=== PATIENT | male | born 1975 | race Caucasian/White ===

== ENCOUNTER 2017-02-17 21:59 | Emergency (ER) | payer SELFPAY ==
[~2017-02-17] VITALS: Ht 162.6 cm; Wt 68.0 kg
[2017-02-17 22:01] VITALS: Ht 162.6 cm; Wt 68.0 kg
--- NOTE | 2017-02-17 22:50 | ERD ---
ER Documentation Chief Complaint Date/Time DATE: 02/17/17 TIME: 22:45 Chief Complaint left knee pain x 1 month, denies in jury HPI 41-year-old male presents to emergency department for complaints of left knee pain for one month now, patient states that whenever he walks long distances, it starts to swell up. Patient's complete of pain throbbing eating less than scale, and movement. Patient denies any trauma on affected area. Patient denies any numbness or tingling. Patient denies any fever or chills. ROS All systems reviewed and are negative except as per history of present illness. Medications Home Meds Active Scripts Tramadol HCl (Tramadol HCl) 50 Mg Tablet, 50 MG PO Q6 Y for SEVERE PAIN LEVEL 7- 10, #20 TAB Prov:MARCIN JANE [employer]CH[employer] 02/18/17 Ibuprofen* (Motrin*) 600 Mg Tab, 600 MG PO Q6H Y for PAIN AND OR ELEVATED TEMP, #30 TAB Prov:MARCIN JANE [employer]CH[employer] 02/18/17 Reported Medications [none] Unknown Strength No Conflict Check 02/17/17 Allergies Allergies: Coded Allergies: No Known Allergy (Unverified , 02/17/17) PMhx/Soc Medical and Surgical Hx: pt denies Medical Hx, pt denies Surgical Hx History of Surgery: No (DENIES MEDICAL AND SURGICAL HX.) Hx Alcohol Use: No Hx Substance Use: No Hx Tobacco Use: No Smoking Status: Never smoker FmHx Family History: No coronary disease, No diabetes, No other Physical Exam Vitals Vital Signs Date Time Temp Pulse Resp B/P Pulse Ox O2 Delivery O2 Flow Rate FiO2 02/17/17 22:01 98.3 85 20 134/76 98 Physical Exam GENERAL: The patient is well developed and appropriate for usual state of health, in no apparent distress. CHEST: Clear to auscultation bilaterally. There are no rales, wheezes or rhonchi. HEART: Regular rate and rhythm. No murmurs, clicks, rubs or gallops. No S3 or S4. ABDOMEN: Soft, nontender and nondistended. Good bowel sounds. No rebound or guarding. No gross peritonitis. No gross organomegaly or masses. No Wood sign or McBurney point tenderness. BACK: No midline or flank tenderness. EXTREMITIES: Able to do full range of motion of the left knee without any restriction, mild tenderness on palpation on the patellar aspect of the left knee, no informant he noted, no ecchymosis noted, no swelling noted. Equal pulses bilaterally. Full range of motion of other joints of the body. Grossly neurovascularly intact. NEURO: Alert and oriented. Cranial nerves 2-12 intact. Motor strength in all 4 extremities with 5/5 strength. Sensation grossly intact. Normal speech and gait. SKIN: There is no apparent rash or petechia. The skin is warm and dry. HEMATOLOGIC AND LYMPHATIC: There is no evidence of excessive bruising or lymphedema. No gross cervical, axillary, or inguinal lymphadenopathy. Results 24 hrs PROCEDURE: LEFT KNEE - 3 VIEWS CLINICAL INDICATION: 41-year-old male with left knee pain. TECHNIQUE: AP, lateral and oblique view of the left knee were obtained. The images reviewed on a PACS workstation. COMPARISON: None. FINDINGS: The bones appear intact, with no evidence of fracture, erosion, demineralization , or dislocation. The alignment of the femorotibial and patellofemoral joints appears normal. No joint space narrowing is seen. IMPRESSION: Unremarkable examination of the left knee. .Bonifacio Rodrigues MD, MD Date Time Electronically viewed and signed by .Bonifacio Rodrigues MD, MD on 02/18/2017 01:00 .M/ CC: MARCIN JANE [employer] After receiving patients xray report, a knee acewrap was applied on the patients left knee_. After application of the splint, patient has intact sensation and circulation on distal area of the affected joint. Patient does not complain of numbness or tingling after application of the splint. Patient tolerated procedure well. Procedures/MDM Medical Decision Making: Patient's pain is most likely consistent with a contusion or a sprain. There is no suspicion for neurovascular compromise. Patient has intact sensation and circulation of the affected extremity. There is low suspicion for septic arthritis. Patient does not have any fever. Radiology exams of the affected area does not show any fracture or dislocation. Disposition: Home. Patient is given prescription for ibuprofen for pain. Patient was advised to elevate the affected area and apply ice on affected area. Patient was advised that if symptoms are worse, numbness, tingling, high fever, unable to move joint, worsening symptoms, to return to emergency department immediately. Otherwise, patient is advised to follow up with the primary care doctor in 5-7 days for reevaluation of symptoms. Departure Diagnosis: Primary Impression: Knee pain Laterality: left Chronicity: acute Qualified Code: M25.562 - Acute pain of left knee Condition: Stable Patient Instructions: Knee Pain, Uncertain Cause Additional Instructions: Patient is given prescription for ibuprofen for pain. Patient was advised to elevate the affected area and apply ice on affected area. Patient was advised that if symptoms are worse, numbness, tingling, high fever, unable to move joint , worsening symptoms, to return to emergency department immediately. Otherwise, patient is advised to follow up with the primary care doctor in 5-7 days for reevaluation of symptoms. MARCIN JANE NP Feb 17, 2017 22:50
--- NOTE | 2017-02-18 01:01 | RADRPT ---
PROCEDURE: LEFT KNEE - 3 VIEWS CLINICAL INDICATION: 41-year-old male with left knee pain. TECHNIQUE: AP, lateral and oblique view of the left knee were obtained. The images reviewed on a PACS workstation. COMPARISON: None. FINDINGS: The bones appear intact, with no evidence of fracture, erosion, demineralization, or dislocation. Th e alignment of the femorotibial and patellofemoral joints appears normal. No joint space narrowing i s seen. IMPRESSION: Unremarkable examination of the left knee. .Bonifacio Rodrigues MD, MD Date Time Electronically viewed and signed by .Bonifacio Rodrigues MD, MD on 02/18/2017 01:00 .M/
[2017-02-18] MEDS ORDERED: IBUP-1542 PO (01:26)
[2017-02-18] MEDS ORDERED: TRAM50TA2 PO (01:26)
[2017-02-18 01:42] VITALS: BP 120/81; PULSE 60; RESP 18; TEMP 98.1
== END 2017-02-18 01:44 | disposition home or self-care (01) ==
LOC: FTE 21:59
DX: M25.562 Pain in left knee (principal)
CPT/HCPCS: 73562